=== PATIENT | male | born 1960 | race Caucasian/White ===

== ENCOUNTER → 2023-08-22 12:12 | Outpatient (CLI) | payer OTHER, SELFPAY ==
[2023-08-22 12:55] LABS: Influenza A - CEPHEID Flu A NEGATIVE (NEGATIVE); Influenza B - CEPHEID Flu B NEGATIVE (NEGATIVE); Respiratory Syncytial Virus Negative (Negative)
[2023-08-22 13:10] LABS: COVID-19 CEPHEID 4-PLEX PCR Negative (Negative)
== END ==
PROVIDERS: Visit Provider Nurse Practitioner Family
DX: R52 Pain, unspecified (principal); R53.83 Other fatigue
CPT/HCPCS: 0241U